=== PATIENT | male | born 1975 | race Caucasian/White ===

== ENCOUNTER 2017-04-13 01:09 | Emergency (ER) | payer SELFPAY ==
[2017-04-13] MEDS ORDERED: Sodium Chloride 0.9% 1,000 ML IV ONE ×2 (01:49→03:11)
--- NOTE | 2017-04-13 01:49 | C.PDOC ---
History Of Present Illness Pt was brought by ems. found intoxicated. Although no name or id, I have seen and treated this patient for similar presentation of alcohol intoxication. No obvious signs of trauma Time Seen by Provider: 04/13/17 01:48 Chief Complaint (Nursing): Seizure History Per: EMS History/Exam Limitations: no limitations Onset/Duration Of Symptoms: Hrs Current Symptoms Are (Timing): Still Present Suicide/Self Injury Attempted (Context): None Modifying Factor(s): Alcohol Severity: Moderate Pain Scale Rating Of: 4 Associated Symptoms: denies: Anger, Anxiety Involuntary Hold By: None Recent travel outside of the [place]: No Additional History Per: EMS Past Medical History Reviewed: Historical Data, Nursing Documentation, Vital Signs Vital Signs: Last Vital Signs Temp 98.1 F 04/13/17 01:15 Pulse 90 04/13/17 04:05 Resp 18 04/13/17 04:05 BP 101/60 04/13/17 04:05 Pulse Ox 99 04/13/17 04:05 Family History: States: No Known Family Hx - Social History Hx Alcohol Use: No Hx Substance Use: Yes - Immunization History Hx Tetanus Toxoid Vaccination: No Hx Influenza Vaccination: No Hx Pneumococcal Vaccination: No Review Of Systems Review Of Systems: ROS cannot be obtained secondary to pt's inabilty to answer questions. Physical Exam - Physical Exam Appears: Other (lethargic) Skin: Warm, Dry Head: Normacephalic Eye(s): bilateral: Normal Inspection Oral Mucosa: Moist Tongue: Normal Appearing Lips: Normal Appearing Neck: Trachea Midline, Supple Chest: Symmetrical Cardiovascular: Rhythm Regular Respiratory: No Rales, Rhonchi (few at bases) Gastrointestinal/Abdominal: Soft, No Tenderness, No Distention Back: Normal Inspection Extremity: Normal ROM Extremity: Bilateral: Atraumatic Neurological/Psych: Slow To Respond With Command Gait: Unable To Assess ED Course And Treatment - Laboratory Results Result Diagrams: 04/13/17 01:58 04/13/17 01:58 O2 Sat by Pulse Oximetry: 100 Pulse Ox Interpretation: Normal - Radiology CXR: Interpreted by Me, Viewed By Me CXR Interpretation: No: Infiltrates, Fracture, Pnemothorax ED OBSERVATION Discharge: Yes Date of observation admission: 04/13/17 Time of observation admission: 03:08 - Observation admission statement Patient is being placed in observation because:: acute alcohol intoxication - Goals of Observation Goals of observation are:: sobriety - Progress Note Progress Note: 04/13/17 03:08 vitals stable 04/13/17 05:48 vitals stable, no complaints Disposition Counseled Patient/Family Regarding: Studies Performed, Diagnosis, Need For Followup - Disposition Referrals: [facility] [Outside] Disposition: HOME/ ROUTINE Disposition Time: 01:49 Condition: FAIR Instructions: Alcohol Intoxication (DC) - Clinical Impression Clinical Impression: Alcohol intoxication, Alcohol abuse
[2017-04-13 02:09] LABS: CHLORIDE 105 mmol/L (98-107)
[2017-04-13 02:10] LABS: POTASSIUM 3.8 mmol/L (3.6-5.2); SODIUM 145 mmol/L (132-148)
[2017-04-13 02:13] LABS: ALB/GLOB RATIO 1.4 (1.0-2.1); ALKALINE PHOSPHATASE 122 U/L (38-126); ALT/SGPT 21 U/L (21-72); AST/SGOT 38 U/L (17-59); BASO # 0.1 K/uL (0.0-0.2); BASO % 1.7 % (0.0-2.0); BILIRUBIN,TOTAL 0.5 mg/dL (0.2-1.3); BLOOD UREA NITROGEN 12 mg/dL (9-20); CARBON DIOXIDE 21 mmol/L (22-30); EOS # 0.2 K/uL (0.0-0.7); EOS % 3.7 % (0.0-4.0); GFR AFRICAN-AMERICAN > 60; GLUCOSE,RANDOM 97 mg/dL (75-110); HEMATOCRIT 35.8 % (35.0-51.0); LYMPH # 2.3 K/uL (1.0-4.3); LYMPH % 42.8 % (20.0-40.0); MEAN CELL VOLUME 89.6 fL (80.0-94.0); MEAN CORPUSCULAR HEMOGLOBIN 29.1 pg (27.0-31.0); MEAN CORPUSCULAR HGB CONC 32.5 g/dL (33.0-37.0); MEAN PLATELET VOLUME 9.1 fL (7.2-11.7); MONO # 0.4 K/uL (0.0-0.8); MONO % 7.3 % (0.0-10.0); NRBC % 0.2 % (0.0-2.0); TOTAL PROTEIN 7.6 g/dL (6.3-8.3); WHITE BLOOD COUNT 5.3 K/uL (4.8-10.8)
[2017-04-13 02:14] LABS: CALCIUM 8.1 mg/dl (8.6-10.4)
[2017-04-13 02:16] LABS: CARBAMAZEPINE < 3.0 ug/mL (4.0-12.0)
[2017-04-13 02:21] LABS: VALPROIC ACID < 10.0 ug/mL (50.0-100.0)
[2017-04-13 02:28] LABS: ALCOHOL SERUM 392 mg/dl (0-10)
[2017-04-13 05:56] VITALS: BP 142/88; PULSE 93; RESP 16; TEMP 97.5; O2SAT 98
--- NOTE | 2017-04-13 09:30 | RAD ---
PROCEDURE: CHEST RADIOGRAPH, 1 VIEW HISTORY: Detox/Psy COMPARISON: None available. FINDINGS: LUNGS: Clear. PLEURA: No pneumothorax or pleural fluid seen. CARDIOVASCULAR: Normal. OSSEOUS STRUCTURES: No significant abnormalities. VISUALIZED UPPER ABDOMEN: Normal. OTHER FINDINGS: None. IMPRESSION: No active disease.
== END 2017-04-13 05:56 | disposition home or self-care (01) ==
LOC: C.ER 01:09 → EDBD 01:09 → MERGE 01:09 → C.ER 05:56
DX: F10.129 Alcohol abuse with intoxication, unspecified (principal); Y90.8 Blood alcohol level of 240 mg/100 ml or more
CPT/HCPCS: 71010; 80053; 80156; 80164; 80185; 85025; 96360; 99285; G0480; J7040

== ENCOUNTER 2017-05-28 12:42 | Emergency (ER) | payer OTHER ==
[2017-05-28 12:47] VITALS: BMI 20.5
[2017-05-28 12:49] VITALS: TEMP 97.6
[2017-05-28] MEDS ORDERED: Sodium Chloride 0.9% 1,000 ML IV ONE (13:10)
[2017-05-28] MEDS ORDERED: Sodium Chloride 0.9% 1,000 ML ONE (13:24)
[2017-05-28 13:43] LABS: BASO # 0.1 K/uL (0.0-0.2); BASO % 2.3 % (0.0-2.0); EOS # 0.1 K/uL (0.0-0.7); EOS % 3.8 % (0.0-4.0); HEMATOCRIT 37.4 % (35.0-51.0); LYMPH # 1.4 K/uL (1.0-4.3); LYMPH % 44.6 % (20.0-40.0); MEAN CELL VOLUME 89.7 fL (80.0-94.0); MEAN CORPUSCULAR HGB CONC 32.3 g/dL (33.0-37.0); MEAN PLATELET VOLUME 8.6 fL (7.2-11.7); MONO # 0.3 K/uL (0.0-0.8); MONO % 9.8 % (0.0-10.0); NRBC % 0.1 % (0.0-2.0); RED CELL DISTRIBUTION WIDTH 17.8 % (11.5-14.5); WHITE BLOOD COUNT 3.1 K/uL (4.8-10.8)
[2017-05-28] MEDS ORDERED: Naloxone 0.4 mg/ml Inj (Adult) IV ONE (13:49)
[2017-05-28 13:54] VITALS: RESP 20
[2017-05-28 13:55] LABS: RBC URINE 10 /hpf (0-3); URINE BILIRUBIN NEGATIVE (NEGATIVE); URINE BLOOD 1+ (NEGATIVE); URINE COLOR Straw (YELLOW); URINE GLUCOSE (UA) NORMAL (Normal); URINE KETONE NEGATIVE (NEGATIVE); URINE LEUKOCYTE ESTERASE NEG Leu/uL (Negative); URINE PROTEIN NEGATIVE (NEGATIVE); URINE UROBILINOGEN NORMAL mg/dL (0.2-1.0); WBC URINE 1 /hpf (0-5)
[2017-05-28] MEDS ORDERED: Naloxone 0.4 mg/ml Inj (Adult) ONE (13:58)
[2017-05-28 14:00] LABS: CHLORIDE 105 mmol/L (98-107); SODIUM 147 mmol/L (132-148)
[2017-05-28 14:01] LABS: POTASSIUM 4.3 mmol/L (3.6-5.2)
[2017-05-28 14:03] LABS: ALB/GLOB RATIO 1.3 (1.0-2.1); ALKALINE PHOSPHATASE 94 U/L (38-126); AST/SGOT 27 U/L (17-59); BILIRUBIN,TOTAL 0.5 mg/dL (0.2-1.3); BLOOD UREA NITROGEN 7 mg/dL (9-20); CARBON DIOXIDE 23 mmol/L (22-30); GFR AFRICAN-AMERICAN > 60; TOTAL PROTEIN 7.5 g/dL (6.3-8.3)
[2017-05-28 14:04] LABS: ALT/SGPT 31 U/L (21-72); CALCIUM 8.4 mg/dl (8.6-10.4); GLUCOSE,RANDOM 94 mg/dL (75-110)
[2017-05-28 14:18] LABS: ALCOHOL SERUM 385 mg/dl (0-10)
--- NOTE | 2017-05-28 15:12 | RAD ---
PROCEDURE: CHEST RADIOGRAPH, 1 VIEW HISTORY: Detox/Psy COMPARISON: 05/11/2016. FINDINGS: LUNGS: The lungs are well inflated and clear. PLEURA: No pneumothorax or pleural fluid seen. CARDIOVASCULAR: Normal. OSSEOUS STRUCTURES: No significant abnormalities. VISUALIZED UPPER ABDOMEN: Normal. OTHER FINDINGS: None. IMPRESSION: No active pulmonary disease.
[2017-05-28 17:29] VITALS: BP 95/67; PULSE 52; O2SAT 98
--- NOTE | 2017-05-28 19:25 | C.PDOC ---
History Of Present Illness 41 year old male was brought to the emergency department by EMS after being found in [facility] wandering intoxicated. Patient was given narcan in the field and denies any physical trauma. Time Seen by Provider: 05/28/17 13:07 Chief Complaint (Nursing): Substance Abuse History Per: Patient History/Exam Limitations: no limitations Onset/Duration Of Symptoms: Hrs Current Symptoms Are (Timing): Still Present Suicide/Self Injury Attempted (Context): None Associated Symptoms: denies: Suicidal Thoughts, Suicidal Plan Involuntary Hold By: None Recent travel outside of the [place]: No Past Medical History Reviewed: Historical Data, Nursing Documentation, Vital Signs Vital Signs: Last Vital Signs Temp 97.6 F 05/28/17 12:49 Pulse 52 L 05/28/17 17:29 Resp 20 05/28/17 17:29 BP 95/67 L 05/28/17 17:29 Pulse Ox 98 05/28/17 19:55 - Medical History PMH: Arthritis (R HAND) - [facility] Procedures DETOXIFICATION SERVICES FOR SUBSTANCE ABUSE TREATMENT (05/10/16) INSERTION OF ENDOTRACHEAL AIRWAY INTO TRACHEA, VIA OPENING (05/10/16) RESPIRATORY VENTILATION, LESS THAN 24 CONSECUTIVE HOURS (05/10/16) Family History: States: Unknown Family Hx - Social History Hx Alcohol Use: Yes Hx Substance Use: Yes (?) - Immunization History Hx Tetanus Toxoid Vaccination: No Hx Influenza Vaccination: No Hx Pneumococcal Vaccination: No Review Of Systems Constitutional: Negative for: Fever, Chills Cardiovascular: Negative for: Chest Pain, Palpitations Respiratory: Negative for: Cough, Shortness of Breath Gastrointestinal: Negative for: Nausea, Vomiting, Abdominal Pain, Diarrhea Psych: Negative for: Suicidal ideation Physical Exam - Physical Exam Appears: Non-toxic, No Acute Distress, Other (EtOH on breath and arousable to painful stimuli. ) Skin: Warm, Dry Head: Atraumatic Eye(s): bilateral: Other (pin point pupils ) Oral Mucosa: Moist Neck: Supple Chest: Symmetrical, No Deformity Cardiovascular: Rhythm Regular Respiratory: Normal Breath Sounds, No Rhonchi, No Wheezing Gastrointestinal/Abdominal: Soft, No Tenderness, No Distention, No Guarding, No Rebound Extremity: Normal ROM, No Tenderness Neurological/Psych: Oriented x3 ED Course And Treatment - Laboratory Results Result Diagrams: 05/28/17 13:23 05/28/17 13:23 O2 Sat by Pulse Oximetry: 98 (room air ) ED OBSERVATION Date of observation admission: 05/28/17 Time of observation admission: 17:45 - Observation admission statement Patient is being placed in observation because:: patient is intoxicated. - Goals of Observation Goals of observation are:: sobriety. Disposition Doctor Will See Patient In The: Office Counseled Patient/Family Regarding: Studies Performed, Diagnosis - Disposition Referrals: [facility] Anonymous [Outside] [facility] [Outside] [facility] [Outside] [facility] [Outside] Disposition: HOME/ ROUTINE Disposition Time: 20:00 Condition: GOOD Instructions: Abuse of Alcohol (ED) Forms: [employer] (Venezuelan) Print Language: OCCITAN - Clinical Impression Clinical Impression: Alcohol intoxication - Scribe Statement The provider has reviewed the documentation as recorded by the Scribe Jayshree Jean All medical record entries made by the Scribe were at my direction and personally dictated by me. I have reviewed the chart and agree that the record accurately reflects my personal performance of the history, physical exam, medical decision making, and the department course for this patient. I have also personally directed, reviewed, and agree with the discharge instructions and disposition.
--- NOTE | 2017-05-28 19:51 | C.PDOC ---
Time Seen by Provider: 05/28/17 13:07 Chief Complaint (Nursing): Substance Abuse Past Medical History Vital Signs: Last Vital Signs Temp 97.6 F 05/28/17 12:49 Pulse 52 L 05/28/17 17:29 Resp 20 05/28/17 17:29 BP 95/67 L 05/28/17 17:29 Pulse Ox 98 05/28/17 17:29 - Medical History PMH: Arthritis (R HAND) Denies: Kidney Stones, Chronic Kidney Disease - [facility] Procedures DETOXIFICATION SERVICES FOR SUBSTANCE ABUSE TREATMENT (05/10/16) INSERTION OF ENDOTRACHEAL AIRWAY INTO TRACHEA, VIA OPENING (05/10/16) RESPIRATORY VENTILATION, LESS THAN 24 CONSECUTIVE HOURS (05/10/16) Family History: States: Unknown Family Hx - Social History Hx Alcohol Use: Yes Hx Substance Use: Yes (?) - Immunization History Hx Tetanus Toxoid Vaccination: No Hx Influenza Vaccination: No Hx Pneumococcal Vaccination: No ED Course And Treatment - Laboratory Results Result Diagrams: 05/28/17 13:23 05/28/17 13:23 Lab Interpretation: Abnormal (ETOH 385) O2 Sat by Pulse Oximetry: 98 Reevaluation Time: 19:53 Reassessment Condition: Improved (wants d/c, clinically sober) Medical Decision Making Medical Decision Making: typical alcohol abuse Disposition Doctor Will See Patient In The: Office Counseled Patient/Family Regarding: Studies Performed, Diagnosis - Disposition Disposition: HOME/ ROUTINE Disposition Time: 19:55 Condition: GOOD Forms: [facility] (Romanian) - Clinical Impression Clinical Impression: Alcohol intoxication
--- NOTE | 2017-06-01 21:55 | CARD ---
APPROVED REPORT EKG Measurement Heart [id number] <Conclusion> Normal sinus rhythm Normal ECG
== END 2017-05-28 20:30 | disposition home or self-care (01) ==
LOC: C.ER 12:42
DX: F10.129 Alcohol abuse with intoxication, unspecified (principal); Y90.8 Blood alcohol level of 240 mg/100 ml or more
CPT/HCPCS: 71010; 80053; 80320; 80324; 80329; 80345; 80346; 80349; 80353; 80358; 80361; 81001; 82948; 83992; 85025; 93005; 96361; 96374; 99285; J2310; J7040